=== PATIENT | male | born 1975 | race Caucasian/White ===

== ENCOUNTER 2017-07-04 20:07 | Inpatient (IN) | payer MEDICAID ==
[~2017-07-04] VITALS: Ht 167.6 cm; Wt 79.0 kg
[~2017-07-04 20:07] MED LIST: METF10002 PO; SIMV40TA5 PO
[2017-07-04 20:23] LABS: GLUCOSE,POINT OF CARE 122 MG/DL (70-110)
[2017-07-04 20:44] LABS: BASOPHILS % (AUTO) 0.6 % (0.0-2.0); EOSINOPHILS % (AUTO) 2.4 % (1.0-6.0); HEMATOCRIT 41.6 % (41-53); HEMOGLOBIN 14.2 g/dL (13.5-17.5); LYMPHOCYTES # (AUTO) 2.2 K/uL (1.0-4.8); LYMPHOCYTES % (AUTO) 19.5 % (22.0-44.0); MEAN CORPUSCULAR HEMOGLOBIN 30.3 pg (26.0-34.0); MEAN CORPUSCULAR HGB CONC 34.2 G/dL (31.0-37.0); MEAN CORPUSCULAR VOLUME 89 fL (80-100); MONOCYTES # (AUTO) 0.9 K/uL (0.1-1.0); MONOCYTES % (AUTO) 7.7 % (2.0-9.0); NEUTROPHILS # (AUTO) 7.7 K/uL (1.8-7.7); NEUTROPHILS % (AUTO) 69.8 % (40.0-70.0); PLATELET COUNT (AUTO) 246 K/uL (150-450); RED CELL DISTRIBUTION WIDTH 12.7 % (11.5-14.5)
[2017-07-04 20:54] LABS: ANION GAP 4 mmol/L (8-16); CALCIUM, TOTAL 8.9 mg/dL (8.8-10.5); CARBON DIOXIDE 32 mmol/L (22-29); CHLORIDE 102 mmol/L (98-107); CREATININE 0.94 mg/dL (0.60-1.30); GLOMERULAR FILTR. RATE CALC > 60 mL/min (>60); GLUCOSE,RANDOM 122 mg/dL (70-110); POTASSIUM 3.9 mmol/L (3.5-5.1); SODIUM SERUM 138 mmol/L (136-145); UREA NITROGEN, BLOOD 19 mg/dL (7-18)
[2017-07-04 21:00] LABS: ALANINE AMINOTRANSFERASE 26 U/L (12-78); ALBUMIN 3.9 g/dL (3.4-5.0); ALKALINE PHOSPHATASE 119 U/L (46-116); ASPARTATE AMINOTRANSFERASE 16 U/L (15-37); BILIRUBIN,TOTAL 0.4 mg/dL (0.1-1.0); LIPASE 98 U/L (73-393); TOTAL PROTEIN, SERUM 7.4 g/dL (6.4-8.2)
[2017-07-04 21:01] LABS: APPEARANCE,URINE CLEAR (CLEAR); BILIRUBIN,URINE NEGATIVE (NEGATIVE); GLUCOSE, URINE (UA) 500 mg/dL (NEGATIVE); KETONES,URINE NEGATIVE (NEGATIVE); LEUKOCYTE ESTERASE ,URINE NEGATIVE (NEGATIVE); NITRATE,URINE NEGATIVE (NEGATIVE); OCCULT BLOOD,URINE NEGATIVE (NEGATIVE); PH,URINE 5.5 (5.0-8.0); PROTEIN,URINE NEGATIVE (NEGATIVE); UROBILINOGEN,URINE 0.2 mg/dL (<=1.0)
[2017-07-04 21:23] LABS: BACTERIA,URINE Rare /HPF (None Seen); RBC,URINE 0-2 /HPF (0-2); SQUAMOUS EPITHELIAL CELL,UR Few /LPF (None Seen); WBC,URINE 0-2 /HPF (0-5)
[2017-07-04] MEDS ORDERED: ONDANSETRON HCL 4 MG/2 ML VIAL IVP ONE (22:00)
[2017-07-04] MEDS ORDERED: SODIUM CHLORIDE 0.9% 1,000 ML IV ONE (22:00)
[2017-07-04] MEDS ORDERED: KETOROLAC TROMETHAMINE 30 MG/ML VIAL IVP ONE (22:00)
[2017-07-04] MEDS ORDERED: MORPHINE SULFATE 10 MG/ML SYRINGE IVP ONE (22:00)
[2017-07-04] MEDS ORDERED: IOVERSOL 350 MG/ML 150 ML VIAL ONE (22:45)
[2017-07-05] MEDS ORDERED: ACETAMINOPHEN 325 MG TABLET PO PRN (00:15)
[2017-07-05] MEDS ORDERED: 0.9% SODIUM CHLORIDE 10 ML SYRINGE IVP PRN ×2 (00:15→01:15)
[2017-07-05] MEDS ORDERED: ONDANSETRON HCL 4 MG/2 ML VIAL IVP PRN ×2 (00:15→01:15)
[2017-07-05] MEDS ORDERED: SODIUM CHLORIDE 0.9% 1,000 ML IV ONE (00:15)
[2017-07-05] MEDS ORDERED: CefoTEtan DISOD 2 GM/DEXTROSE 50 ML IV ONE (00:15)
[2017-07-05] MEDS ORDERED: CefoTEtan DISOD 1 GM/DEXTROSE 50 ML IV SCH (01:15)
[2017-07-05] MEDS ORDERED: MORPHINE SULFATE 2 MG/ML SYRINGE IVP PRN ×2 (01:15→13:30)
[2017-07-05] MEDS: PANTOPRAZOLE SODIUM 40 MG/VIAL IVP SCH (08:14)
[2017-07-05] MEDS ORDERED: RINGERS SOLUTION,LACTATED 1,000 ML IV ONE ×2 (11:30→13:17)
[2017-07-05] MEDS ORDERED: LIDOCAINE HCL 2%/EPI 1:200,000/PF 20 ML VIAL ONE (11:47)
[2017-07-05] MEDS ORDERED: BUPIVACAINE HCL/PF 0.5% 30 ML VIAL ONE (11:47)
[2017-07-05] MEDS: CefoTEtan DISODIUM 1 GM/VIAL IVP SCH (12:00)
[2017-07-05 12:03] LABS: GLUCOMETER DEV NAME(LOC) SDS 5; GLUCOSE,POINT OF CARE 98 MG/DL (70-110)
[2017-07-05] MEDS ORDERED: HYDROCODONE/ACETAMINOPHEN 5-325 MG TABLET PO PRN (13:30)
[2017-07-05] MEDS ORDERED: ACETAMINOPHEN 500 MG TABLET PO PRN (13:30)
[2017-07-05] MEDS ORDERED: HYDROmorphone 2 MG/ML SYRINGE IVP PRN (14:00)
[2017-07-05] MEDS ORDERED: MEPERIDINE-PF 25 MG/ML SYRINGE IVP PRN (14:00)
[2017-07-05] MEDS: OXYGEN THERAPY IH SCH (14:00)
[2017-07-05] MEDS ORDERED: FentaNYL CITRATE-PF 100 MCG/2 ML VIAL IVP PRN (14:00)
[2017-07-05 15:36] VITALS: BP 131/90
[2017-07-05 17:38] LABS: GLUCOMETER DEV NAME(LOC) 6N 2D; GLUCOSE,POINT OF CARE 143 MG/DL (70-110)
[2017-07-05] MEDS ORDERED: INFLUENZA VIRUS VACCINE QVS 2017-18 (3YR+)/PF 60 MCG/0.5 ML SYRINGE IM ONE (18:15)
[2017-07-05 19:45] VITALS: BP 121/75
[2017-07-05 21:42] LABS: GLUCOMETER DEV NAME(LOC) 6N 1E; GLUCOSE,POINT OF CARE 261 MG/DL (70-110)
[2017-07-05] MEDS ORDERED: ROCURONIUM BROMIDE 10 MG/ML 5 ML VIAL IVP ONE (22:43)
[2017-07-05] MEDS ORDERED: OXYTOCIN 10 UNITS/ML VIAL IM ONE (22:43)
[2017-07-05] MEDS ORDERED: DEXAMETHASONE SOD PHOS 4 MG/ML VIAL IVP ONE (22:43)
[2017-07-05] MEDS ORDERED: SUCCINYLCHOLINE CHLORIDE 20 MG/ML 10 ML VIAL IVP ONE (22:43)
[2017-07-05] MEDS ORDERED: LIDOCAINE HCL/PF 2% 5 ML VIAL IM ONE (22:43)
[2017-07-05] MEDS ORDERED: METOCLOPRAMIDE HCL 5 MG/ML 2 ML VIAL IVP ONE (22:43)
[2017-07-05] MEDS ORDERED: GLYCOPYRROLATE 0.2 MG/ML VIAL IM ONE (22:43)
[2017-07-05] MEDS ORDERED: PROPOFOL 1% 20 ML VIAL IVP ONE ×2 (22:43→22:46)
[2017-07-05] MEDS ORDERED: NEOSTIGMINE METHYLSULFATE 1 MG/ML 10 ML VIAL IVP ONE (22:43)
[2017-07-06 00:16] VITALS: BP 114/69
[2017-07-06] MEDS: OXYGEN THERAPY IH SCH ×3 (00:52→20:00)
[2017-07-06] MEDS: CefoTEtan DISODIUM 1 GM/VIAL IVP SCH (00:52)
[2017-07-06 04:00] VITALS: BP 123/63
[2017-07-06] MEDS ORDERED: MIDAZOLAM HCL 2 MG/2 ML VIAL IVP ONE (05:59)
[2017-07-06] MEDS ORDERED: FentaNYL CITRATE-PF 100 MCG/2 ML VIAL IVP ONE (05:59)
[2017-07-06] MEDS ORDERED: DEXTROSE 50%-WATER 25 GM/50 ML SYRINGE IVP PRN (06:00)
[2017-07-06 06:57] LABS: ANION GAP 4 mmol/L (8-16); CARBON DIOXIDE 29 mmol/L (22-29); CHLORIDE 101 mmol/L (98-107); CREATININE 1.11 mg/dL (0.60-1.30); GLOMERULAR FILTR. RATE CALC > 60 mL/min (>60); GLUCOSE,RANDOM 177 mg/dL (70-110); POTASSIUM 3.8 mmol/L (3.5-5.1); SODIUM SERUM 134 mmol/L (136-145); UREA NITROGEN, BLOOD 13 mg/dL (7-18)
[2017-07-06 06:58] LABS: BASOPHILS # (AUTO) 0.02 K/uL (0.00-0.20); BASOPHILS % (AUTO) 0.2 % (0.0-2.0); EOSINOPHILS # (AUTO) 0.01 K/uL (0.00-0.70); HEMATOCRIT 37.8 % (41-53); HEMOGLOBIN 12.9 g/dL (13.5-17.5); LYMPHOCYTES # (AUTO) 1.7 K/uL (1.0-4.8); LYMPHOCYTES % (AUTO) 17.4 % (22.0-44.0); MEAN CORPUSCULAR HEMOGLOBIN 30.4 pg (26.0-34.0); MEAN CORPUSCULAR HGB CONC 34.1 G/dL (31.0-37.0); MEAN CORPUSCULAR VOLUME 89 fL (80-100); MONOCYTES # (AUTO) 0.6 K/uL (0.1-1.0); MONOCYTES % (AUTO) 6.4 % (2.0-9.0); NEUTROPHILS # (AUTO) 7.5 K/uL (1.8-7.7); PLATELET COUNT (AUTO) 221 K/uL (150-450); RED BLOOD CELL COUNT(AUTO) 4.23 MIL/uL (4.50-5.90); RED CELL DISTRIBUTION WIDTH 12.3 % (11.5-14.5)
[2017-07-06] MEDS: INSULIN ASPART 100 UNITS/ML SQ PRN ×4 (06:58→22:23)
[2017-07-06 07:38] LABS: GLUCOMETER DEV NAME(LOC) 5N 2R; GLUCOSE,POINT OF CARE 168 MG/DL (70-110)
[2017-07-06 08:25] VITALS: BP 121/68
[2017-07-06] MEDS: PANTOPRAZOLE SODIUM 40 MG/VIAL IVP SCH (08:57)
[2017-07-06 11:49] VITALS: BP 116/75
[2017-07-06] MEDS ORDERED: DEXTROSE 5% IV SCH (13:00)
[2017-07-06] MEDS ORDERED: WATER IV SCH (13:00)
[2017-07-06] MEDS ORDERED: CEFOTETAN DISODIUM IV SCH (13:00)
[2017-07-06] MEDS: CEFOTETAN DISODIUM IV SCH (14:23)
[2017-07-06] MEDS: DEXTROSE 5% IV SCH (14:23)
[2017-07-06] MEDS: WATER IV SCH (14:23)
[2017-07-06 15:45] VITALS: BP 117/77
[2017-07-06 17:18] LABS: GLUCOMETER DEV NAME(LOC) 5N 2R; GLUCOSE,POINT OF CARE 158 MG/DL (70-110)
[2017-07-06 19:57] LABS: GLUCOMETER DEV NAME(LOC) 6N 1E; GLUCOSE,POINT OF CARE 154 MG/DL (70-110)
[2017-07-06 20:00] VITALS: BP 119/82
[2017-07-07 00:28] VITALS: BP 103/63
[2017-07-07] MEDS: DEXTROSE 5% IV SCH (00:49)
[2017-07-07] MEDS: WATER IV SCH (00:49)
[2017-07-07] MEDS: CEFOTETAN DISODIUM IV SCH (00:49)
[2017-07-07 04:00] VITALS: BP_SYST 106; BP_SYST 116; BP_DIAS 71; BP_DIAS 82
[2017-07-07 05:23] LABS: GLUCOMETER DEV NAME(LOC) 6N 2D; GLUCOSE,POINT OF CARE 166 MG/DL (70-110)
[2017-07-07 07:17] LABS: GLUCOMETER DEV NAME(LOC) 6N 1E; GLUCOSE,POINT OF CARE 114 MG/DL (70-110)
[2017-07-07 07:31] LABS: HEMOGLOBIN A1C 7.5 % (4.5-6.2)
[2017-07-07 07:36] LABS: ANION GAP 4 mmol/L (8-16); CALCIUM, TOTAL 8.6 mg/dL (8.8-10.5); CARBON DIOXIDE 31 mmol/L (22-29); CHLORIDE 104 mmol/L (98-107); CHOL/HDL RATIO 3.4 (4.2-7.3); CHOLESTEROL 137 mg/dL (131-200); CREATININE 1.02 mg/dL (0.60-1.30); GLOMERULAR FILTR. RATE CALC > 60 mL/min (>60); GLUCOSE,RANDOM 109 mg/dL (70-110); HDL CHOLESTEROL 40 mg/dL (40-60); LDL CHOL (CALC.) 76 mg/dL (0-130); POTASSIUM 3.8 mmol/L (3.5-5.1); SODIUM SERUM 139 mmol/L (136-145); TRIGLYCERIDES 106 mg/dL (15-150); UREA NITROGEN, BLOOD 17 mg/dL (7-18)
[2017-07-07 07:42] VITALS: BP 136/72
[2017-07-07] MEDS: PANTOPRAZOLE SODIUM 40 MG/VIAL IVP SCH (08:22)
[2017-07-07] MEDS ORDERED: IBUP-2071 PO (09:13)
== END 2017-07-07 11:15 | disposition home or self-care (01) | DRG 225 ==
LOC: EMS 20:08 → 6N 07-05 12:50 → 4E 07-07 06:09
PROVIDERS: ADMIT Internal Medicine; ATTEND Internal Medicine
PROC: 0DTJ4ZZ Resection of Appendix, Percutaneous Endoscopic Approach (ICD-10-PCS; principal; 2017-07-05 12:00)
DX: K35.80 Unspecified acute appendicitis (principal); E11.9 Type 2 diabetes mellitus without complications; E78.00 Pure hypercholesterolemia, unspecified; E78.5 Hyperlipidemia, unspecified; F17.210 Nicotine dependence, cigarettes, uncomplicated; Z79.84 Long term (current) use of oral hypoglycemic drugs; Z79.899 Other long term (current) drug therapy
CPT/HCPCS: 74177; 82962; 83036; 83735; 87081; 88304; 96361; 96365; 96375; 96376; 99285; C9113; J0330; J0690; J1100; J1885; J2250; J2270; J2405; J2590; J2704; J2765; J3010; J3490; J7030; J7060; J7120